=== PATIENT | male | born 1930 | race African-American/Black ===

== ENCOUNTER 2018-04-08 15:54 | Inpatient (IN) | payer OTHER ==
[2018-04-07 23:00] VITALS: BP 147/57
[~2018-04-08] VITALS: Ht 170.2 cm; Wt 70.0 kg
[2018-04-08] MEDS: ALBUTEROL (0.083%) 2.5MG/3ML NEB HHN SCH ×3 (15:44→18:00)
[2018-04-08] MEDS ORDERED: METHYLPREDNISOLONE SOD SUCC 125 MG/2 ML VIAL IV STA (16:31)
[2018-04-08] MEDS ORDERED: IPRATROPIUM BROMIDE (0.02%) 0.5MG/2.5ML NEB HHN STA (16:31)
[2018-04-08 17:21] LABS: CHLORIDE 97 mEq/L (98-107)
[2018-04-08 17:21] LABS: CLARITY URINE TURBID (CLEAR); KETONES URINE NEGATIVE (NEGATIVE); LEUKOCYTE ESTERASE URINE 1+ (NEGATIVE); NITRITE URINE NEGATIVE (NEGATIVE); OCCULT BLOOD URINE NEGATIVE (NEGATIVE); PROTEIN URINE 4+ (NEGATIVE); SPECIFIC GRAVITY URINE 1.024 (1.005-1.030); UROBILINOGEN URINE 0.2 E.U./dL (0.2-1.0)
[2018-04-08 17:22] LABS: HEMATOCRIT. 42.6 % (42.0-52.0); HEMOGLOBIN. 13.8 g/dL (14.0-18.0); MEAN CORPUSCULAR HEMOGLOBIN 32.3 pg (28.0-32.0); MEAN CORPUSCULAR VOLUME 99.7 fL (80.0-94.0); MEAN PLATELET VOLUME 8.5 fl (7.4-10.4); PLATELET 211 x1000/uL (130-400); RED BLOOD CELL COUNT 4.28 mill/uL (4.7-6.1); RED CELL DISTRIBUTION WIDTH 13.7 % (11.6-14.6)
[2018-04-08 17:32] LABS: COLOR URINE YELLOW (YELLOW)
[2018-04-08 17:43] LABS: INR 1.2; PROTHROMBIN TIME 12.3 sec (9.1-11.1)
[2018-04-08] MEDS ORDERED: SODIUM CHLORIDE 0.9% 1000ML BAG (SEPSIS BOLUS) IV ONE (17:45)
[2018-04-08] MEDS ORDERED: PIPERACILLIN/TAZ 3.375G PREMIX 50 ML IV ONE (17:45)
[2018-04-08] MEDS ORDERED: VANCOMYCIN 1 G PREMIX 200 ML IV ONE (17:45)
[2018-04-08 17:50] LABS: PLATELET ESTIMATE NORMAL
[2018-04-08] MEDS ORDERED: SODIUM CHLORIDE 0.45% 1,000 ML IV SCH (17:57)
[2018-04-08] MEDS ORDERED: METHYLPREDNISOLONE SOD SUCC 125 MG/2 ML VIAL IV SCH (18:00)
[2018-04-08] MEDS ORDERED: DOCUSATE SODIUM 100MG CAPSULE PO PRN (18:00)
[2018-04-08] MEDS ORDERED: ACETAMINOPHEN 325MG TABLET PO PRN (18:00)
[2018-04-08] MEDS ORDERED: HYDROCODONE/ACETAMINOPHEN 5/325MG TABLET PO PRN (18:00)
[2018-04-08] MEDS ORDERED: DIPHENHYDRAMINE 50MG/ML VIAL IV PRN (18:00)
[2018-04-08] MEDS ORDERED: MAGNESIUM/ALUMINUM HYDROXIDE/SIMETHICONE 30ML UDC PO PRN (18:00)
[2018-04-08] MEDS ORDERED: NA PHOS,M-B/NA PHOS,DI-BA ENEMA 118ML PR PRN (18:00)
[2018-04-08] MEDS ORDERED: LEVOFLOXACIN 500MG PREMIX 100 ML IV SCH (18:00)
[2018-04-08] MEDS ORDERED: ENOXAPARIN 40MG/0.4ML SYR SUBCUT SCH (18:00)
[2018-04-08] MEDS ORDERED: ONDANSETRON HCL 4MG/2ML INJ IV PRN (18:00)
[2018-04-08] MEDS ORDERED: IPRATROPIUM/ALBUTEROL 0.5-3(2.5)MG/3ML NEB INH PRN (18:00)
[2018-04-08] MEDS ORDERED: GUAIFENESIN 200MG/10ML SUGAR FREE UDC PO PRN (18:00)
[2018-04-08] MEDS ORDERED: LORAZEPAM 2MG/ML CPJ IV PRN (18:00)
[2018-04-08] MEDS ORDERED: HYDROMORPHONE HCL/PF 2MG/ML CPJ IV PRN (18:00)
[2018-04-08] MEDS ORDERED: CLONIDINE 0.1MG TABLET PO PRN (18:00)
[2018-04-08] MEDS ORDERED: LEVOFLOXACIN 250MG PREMIX 50 ML IV SCH (22:30)
[2018-04-08 23:00] VITALS: BP 131/73
[2018-04-08 23:43] VITALS: BP 131/73
[2018-04-08] MEDS: METHYLPREDNISOLONE SOD SUCC 125 MG/2 ML VIAL IV SCH (23:43)
[2018-04-08] MEDS: SODIUM CHLORIDE 0.45% 250 ML IV SCH (23:44)
[2018-04-09] VITALS (17 sets, daily range): BP systolic 127–171; BP diastolic 75–96
[2018-04-09] MEDS ORDERED: LEVOFLOXACIN 500MG PREMIX 100 ML IV NR (01:00)
[2018-04-09] MEDS: SODIUM CHLORIDE 0.45% 250 ML IV SCH (04:00)
[2018-04-09] MEDS: METHYLPREDNISOLONE SOD SUCC 125 MG/2 ML VIAL IV SCH ×2 (06:00→12:24)
[2018-04-09 08:30] LABS: HEMATOCRIT. 37.9 % (42.0-52.0); HEMOGLOBIN. 12.6 g/dL (14.0-18.0); MEAN CORPUSCULAR HEMOGLOBIN 32.4 pg (28.0-32.0); MEAN CORPUSCULAR VOLUME 97.7 fL (80.0-94.0); MEAN PLATELET VOLUME 8.7 fl (7.4-10.4); PLATELET 166 x1000/uL (130-400); RED BLOOD CELL COUNT 3.88 mill/uL (4.7-6.1); RED CELL DISTRIBUTION WIDTH 14.1 % (11.6-14.6)
[2018-04-09] MEDS ORDERED: SODIUM CHLORIDE 0.9% 1,000 ML IV SCH (08:30)
[2018-04-09] MEDS: SODIUM CHLORIDE 0.45% 1,000 ML IV SCH ×2 (08:37→09:26)
[2018-04-09 08:51] LABS: CHLORIDE 105 mEq/L (98-107)
[2018-04-09] MEDS ORDERED: ASPIRIN 81MG EC TABLET PO SCH (09:00)
[2018-04-09] MEDS ORDERED: ENOXAPARIN 30MG/0.3ML SYR SUBCUT SCH (09:00)
[2018-04-09 09:02] LABS: LDL CHOLESTEROL 31 mg/dL (5-100)
[2018-04-09 09:03] LABS: HDL CHOLESTEROL 67 mg/dL (40-59)
[2018-04-09 09:04] LABS: T4 FREE 1.24 ng/dL (0.76-1.46)
[2018-04-09 10:11] LABS: CREATINE KINASE 626 IU/L (39-308)
[2018-04-09 14:12] LABS: PLATELET ESTIMATE NORMAL
[2018-04-09 16:27] LABS: CREATINE KINASE 505 IU/L (39-308)
[2018-04-09 16:28] LABS: CREATINE KINASE MB FRACTION 9.2 ng/mL (0.5-3.6)
[2018-04-09] MEDS ORDERED: PREDNISONE 20MG TABLET PO SCH (21:00)
[2018-04-11] MEDS ORDERED: LEVOFLOXACIN 250MG PREMIX 50 ML IV SCH
[2018-04-11 19:06] LABS: ANTI-NUCLEAR ANTIBODIES DIRECT Negative (Negative)
[2018-04-14 05:23] LABS: COMPLEMENT C3 130 mg/dL (82-167)
== END 2018-04-09 20:20 | disposition short-term general hospital (02) | DRG 871 ==
LOC: ER 15:54 → EDBD 17:46 → 5EST 17:46 → EDBEDREQSVC 17:49 → EDBEDREQTM 17:49 → EDBEDREQ 17:49 → ENRESERV 19:52
PROVIDERS: ADMIT Internal Medicine; ATTEND Internal Medicine
DX: A41.9 Sepsis, unspecified organism (principal); J69.0 Pneumonitis due to inhalation of food and vomit; N17.0 Acute kidney failure with tubular necrosis; J96.00 Acute respiratory failure, unspecified whether with hypoxia or hypercapnia; E46 Unspecified protein-calorie malnutrition; I13.0 Hypertensive heart and chronic kidney disease with heart failure and stage 1 through stage 4 chronic kidney disease, or unspecified chronic kidney disease; E87.1 Hypo-osmolality and hyponatremia; N39.0 Urinary tract infection, site not specified; D64.9 Anemia, unspecified; E78.5 Hyperlipidemia, unspecified; F17.210 Nicotine dependence, cigarettes, uncomplicated; J44.9 Chronic obstructive pulmonary disease, unspecified; H91.90 Unspecified hearing loss, unspecified ear; I25.10 Atherosclerotic heart disease of native coronary artery without angina pectoris; I50.9 Heart failure, unspecified; N18.9 Chronic kidney disease, unspecified; N40.1 Benign prostatic hyperplasia with lower urinary tract symptoms; Z85.46 Personal history of malignant neoplasm of prostate; Z68.24 Body mass index [BMI] 24.0-24.9, adult
CPT/HCPCS: 36415; 71045; 76770; 80048; 80061; 82550; 82553; 82962; 83036; 83605; 83880; 84439; 84443; 84484; 85379; 86038; 86160; 87077; 87186; 93005; 93306; 93970; 94640; 96365; 96375; 99291; A6261; J1650; J1956; J2543; J2930; J3370; J7030; J7611